=== PATIENT | male | born 1995 | race Caucasian/White ===

== ENCOUNTER 2017-02-14 23:30 | Emergency (ER) | payer OTHER ==
[~2017-02-14] VITALS: Ht 188 cm; Wt 84.7 kg
[~2017-02-14 23:30] MED LIST: MOTRIN800 MG PO
[2017-02-15] MEDS ORDERED: NAPROSYN500 MG PO (01:19)
[2017-02-15 02:08] VITALS: BP 112/74
== END 2017-02-15 02:09 | disposition home or self-care (01) ==
LOC: EME → EDBD 23:30 → EME 23:30
DX: S29.011A Strain of muscle and tendon of front wall of thorax, initial encounter (principal); X50.0XXA Overexertion from strenuous movement or load, initial encounter; F17.200 Nicotine dependence, unspecified, uncomplicated
CPT/HCPCS: 71100; 93005; 99281; 99283; J1885

== ENCOUNTER 2017-03-03 17:40 | Emergency (ER) | payer OTHER ==
[~2017-03-03] VITALS: Ht 188 cm; Wt 97.7 kg
[~2017-03-03 17:40] MED LIST changes: +NAPROSYN500 MG PO
[2017-03-03] MEDS ORDERED: NAPROSYN500 MG PO (19:15)
[2017-03-03 19:31] VITALS: BP 113/69
== END 2017-03-03 19:40 | disposition home or self-care (01) ==
LOC: EME 17:40
DX: S96.912A Strain of unspecified muscle and tendon at ankle and foot level, left foot, initial encounter (principal); X50.1XXA Overexertion from prolonged static or awkward postures, initial encounter
CPT/HCPCS: 73630; 99281; 99284

== ENCOUNTER 2017-06-09 21:32 | Emergency (ER) | payer OTHER ==
[~2017-06-09] VITALS: Ht 188 cm; Wt 97.7 kg
[2017-06-09 22:02] VITALS: BP 133/86
[2017-06-09 22:29] LABS: HEMATOCRIT 40.5 % (38.0-50.0); MCHC 34.6 G/DL (30.0-36.0); MCV 89.8 FL (86-99); MEAN PLAT.VOLUME 9.4 uM^3 (9.0-12.4); PLATELET COUNT 283 K/uL (156-360); RBC DIS.WIDTH-CV 11.9 % (11.8-14.6); RBC DIS.WIDTH-SD 39.2 % (39-53); RED BLOOD COUNT 4.51 M/uL (4.00-5.50); WHITE BLOOD COUNT 10.7 K/uL (4.1-10.2)
[2017-06-09 22:41] LABS: CHLORIDE 105 mEq/L (99-109); POTASSIUM 3.9 mEq/L (3.7-5.4); SODIUM 138 mEq/L (136-147)
[2017-06-09 22:43] LABS: GLUCOSE 102 mg/dL (70-99)
[2017-06-09 22:44] LABS: ANION GAP 10 MEQ/L (2-14)
[2017-06-09 22:47] LABS: GFR ESTIMATE (CALCULATED) > 59 mL/min/
[2017-06-09 22:48] LABS: UREA NITROGEN (BUN) 14 mg/dL (9-23)
[2017-06-09 22:51] LABS: TROP-I INTERPRETATION NEGATIVE; TROPONIN-I < 0.01 ng/mL (0.0-0.30)
== END 2017-06-09 23:15 | disposition left against medical advice (07) ==
LOC: EME 21:32
DX: R07.9 Chest pain, unspecified (principal); R06.00 Dyspnea, unspecified; Z53.21 Procedure and treatment not carried out due to patient leaving prior to being seen by health care provider
CPT/HCPCS: 80048; 84484; 85027; 93005

== ENCOUNTER 2017-08-15 07:40 | Emergency (ER) | payer OTHER ==
[~2017-08-15] VITALS: Ht 188 cm; Wt 97.5 kg
[2017-08-15 07:53] VITALS: BP 135/92
== END 2017-08-15 07:58 | disposition left against medical advice (07) ==
LOC: EME 07:40
DX: M54.5 Low back pain (principal); Z53.21 Procedure and treatment not carried out due to patient leaving prior to being seen by health care provider

== ENCOUNTER 2018-01-29 20:25 | Emergency (ER) | payer OTHER ==
[~2018-01-29] VITALS: Ht 188 cm; Wt 100.2 kg
[2018-01-29 22:52] VITALS: BP 133/72
== END 2018-01-29 23:01 | disposition home or self-care (01) ==
LOC: EME 20:25
PROC: 0HQGXZZ Repair Left Hand Skin, External Approach (ICD-10-PCS; principal; 2018-01-29)
DX: S61.012A Laceration without foreign body of left thumb without damage to nail, initial encounter (principal); W26.0XXA Contact with knife, initial encounter
CPT/HCPCS: 99281; 99284